=== PATIENT | female | born 1945 | race Caucasian/White ===

== ENCOUNTER 2017-10-21 08:46 | Outpatient (CLI) | payer MEDICARE, OTHER | END 2017-10-21 08:47 | disposition critical access hospital (66) | LOC: EMS 08:46 | PROVIDERS: ATTEND Surgery | DX: R51 Headache (principal) | CPT/HCPCS: A0425; A0429 ==

== ENCOUNTER 2017-10-22 05:49 | Outpatient (CLI) | payer MEDICARE, OTHER | END 2017-10-22 05:50 | disposition critical access hospital (66) | LOC: EMS 05:49 | PROVIDERS: ATTEND Surgery | DX: R51 Headache (principal) | CPT/HCPCS: A0425; A0429 ==